=== PATIENT | male | born 1960 | race Caucasian/White ===

== ENCOUNTER 2016-06-04 04:30 | Emergency (ER) | payer OTHER ==
[2016-06-04 04:44] VITALS: BP 151/93
[2016-06-04] MEDS ORDERED: HYDROmorphone 1 MG/ML Syringe IVPUSH ONE (04:52)
[2016-06-04] MEDS ORDERED: Ondansetron 4 MG/2 ML SDV IVPUSH ONE (04:52)
[2016-06-04] MEDS ORDERED: Sodium Chloride 0.9% 10 ML Syringe FLUSH PRN (04:52)
[2016-06-04] MEDS ORDERED: Sodium Chloride 0.9% 1,000 ML IV ONE (04:52)
[2016-06-04 05:53] LABS: CHLORIDE,CL 101 mmol/L (98-107); SODIUM,NA 139 mmol/L (136-145)
[2016-06-04] MEDS ORDERED: Potassium Chloride 20 MEQ Tab.ER PO ONE (06:32)
[2016-06-04] MEDS ORDERED: Take Home: Acetaminophen/HYDROcodone 325-5 MG, 5 Tab Pack PO ONE (06:52)
[2016-06-04] MEDS ORDERED: Ketorolac 30 MG/ML SDV IVPUSH ONE (06:53)
--- NOTE | 2016-06-04 12:07 | ER ---
Date of Service: 06/04/2016 SUBJECTIVE: Dereje presents to the emergency room with complaints of right upper quadrant abdominal pain and right-sided flank pain. The patient states that he has been experiencing this discomfort intermittently for the past day. There does appear to be a postprandial component to this. He states that he did eat some hot dish today and did consume milk as well. He states that he has not been experiencing any fever or chills. The patient states that he thinks that he possibly has a kidney stone, because he did have pain similar to this approximately 5 years ago that resolved on its own. He denies any tea-colored urine or fabio-colored stools. PAST MEDICAL HISTORY: 1. Type 2 diabetes mellitus. 2. Hypertension. 3. Chronic hypokalemia. MEDICATIONS: 1. Zoloft. 2. Metformin. 3. Potassium chloride. 4. Unknown antihypertensive agents. REVIEW OF SYSTEMS: General: No fever or chills. HEENT: No sore throat, rhinorrhea, or congestion. Respiratory: No shortness breath. Cardiac: Denies any substernal chest pain. No jaw, arm, neck, or back pain. Gastrointestinal: Please see history of present illness. Again, complains of right upper quadrant abdominal pain and right flank pain. Denies any melena, hematochezia, hematemesis. Genitourinary: Denies any dysuria. Musculoskeletal: No myalgias or arthralgias. LABORATORY DATA: CBC was obtained, was all noted to be within normal limits. Comprehensive metabolic panel was obtained. Sodium is 139, potassium is 2.9, chloride is 101, bicarbonate is 29, BUN is 16, creatinine is 1.1, creatinine clearance is 79, GFR is greater than 60, glucose is 271, calcium is 9.4, corrected calcium is 9.8, total bilirubin is 0.7, AST is 46, ALT is 66, alkaline phosphatase is 109, total protein is 7.5, albumin is 3.5. Urinalysis specific gravity is 1.030. He did have glucose in his urine. He did have trace ketones. PH was 7.0, negative for leukocytes and nitrites. CT scan of the patient's abdomen and pelvis without contrast was obtained. There was evidence of several large gallstones and sludge in the gallbladder. No evidence of any kidney stone. No evidence any inflammatory changes surrounding the gallbladder. EMERGENCY ROOM COURSE: IV access was established. He was given a liter of normal saline IV. He was given Dilaudid 1 mg IV and Zofran 4 mg IV. This did help with his discomfort significantly. However, he began experiencing increased pain. He was subsequently given 30 mg of Toradol, which did help significantly, again with the discomfort. He remained stable in my care in the emergency room. ASSESSMENT: 1. Cholecystitis. 2. Chronic hypokalemia. 3. Type 2 diabetes mellitus with hyperglycemia. PLAN: The patient was discharged. His potassium was repleted. I did start him on [place] 5/325 with instructions to take 1 every 4 to 6 hours as needed for pain. He has not taken his morning medication. He states that his blood sugar normally runs in this range in the mornings as he does have very poorly controlled blood glucose. I advised him to follow up with his primary care provider in the next 5 to 7 days to address these issues. All questions were answered. LUIS AK: 06/04/2016 07:07:39 MODL: 06/04/2016 11:57:38 /[id number]
--- NOTE | 2016-06-08 13:32 | ER ---
Date of Service: 06/04/2016 ADDENDUM: PHYSICAL EXAMINATION: General: A 56-year-old male patient. No acute distress. Vital Signs: Blood pressure is 151/91, pulse rate is 87, temperature is 36.1, O2 saturations 94%, and respiratory rate 16. Skin: Warm, pink, and dry. HEENT. Head is normocephalic, atraumatic. Mouth, oral mucosa is moist. Lungs: Clear to auscultation. Heart: Regular rate and rhythm. Abdomen: Soft, diffusely tender in the right upper quadrant. There are no masses noted. There is no hepatosplenomegaly noted. Bowel sounds are normoactive. Remainder of his physical examination is within normal limits. MWK: 06/07/2016 19:38:36 MODL: 06/08/2016 00:14:45 /[id number]
== END 2016-06-04 07:20 | disposition home or self-care (01) ==
LOC: VM.ED 04:30
DX: K81.9 Cholecystitis, unspecified (principal); E87.6 Hypokalemia; E11.65 Type 2 diabetes mellitus with hyperglycemia; I10 Essential (primary) hypertension
CPT/HCPCS: 74176; 80053; 81001; 85025; 93005; 96361; 96374; 96375; 99285; A9270; J1170; J1885; J2405; J7030

== ENCOUNTER 2020-04-03 06:59 | Day surgery (SDC) | payer OTHER ==
[2020-04-03] MEDS ORDERED: Lactated Ringers 1,000 ML IV SCH (07:00)
[2020-04-03] MEDS ORDERED: Citric Acid/Sodium Citrate Solution 30 ML Cup PO ONE (07:58)
[2020-04-03] MEDS ORDERED: Propofol 200 MG/20 ML SDV ONE (08:06)
[2020-04-03] MEDS ORDERED: fentaNYL 100 MCG/2 ML SDV ONE (08:07)
[2020-04-03 10:39] VITALS: BP 126/77; PULSE 66
--- NOTE | 2020-04-03 14:31 | OR ---
PREOPERATIVE DIAGNOSES: 1. Esophageal dysphagia in the upper chest. 2. Gastroesophageal reflux disease. POSTOPERATIVE DIAGNOSES: 1. Esophageal dysphagia in the upper chest. 2. Gastroesophageal reflux disease. 3. Mild antritis. 4. Distal esophagitis. 5. No evidence of strictures or masses in the esophagus to account for symptoms. PROCEDURE PERFORMED: Esophagogastroduodenoscopy with biopsies. ANESTHESIA: MAC anesthesia. COMPLICATIONS: None apparent. BLOOD LOSS: Minimal. FINDINGS: 1. The duodenum was unremarkable. 2. There was mild antritis and gastritis. 3. Multiple antral lesser curve and greater curve biopsies were taken for H. pylori. 4. There was a small approximately 2 cm hiatal hernia. 5. There was distal esophagitis. Biopsies were obtained. 6. The remainder of the esophagus was unremarkable without evidence of masses or strictures to account for symptoms. Random biopsies were taken to evaluate for eosinophilic esophagitis as the source of his dysphagia. INDICATIONS FOR PROCEDURE: Mr. Sommers is a 59-year-old male who has had dysphagia in his upper chest for greater than a year. It happened several times a week and is present only with solids. He denies any weight loss. He does take [id number] omeprazole most days, but does not take it every single day. He also describes burning in his throat which occurs on most days. In addition, he has mild intermittent epigastric pain. He reports a history of gastric ulcers many years ago. PROCEDURE IN DETAIL: Informed consent was obtained. The patient was brought to the operating room and placed in left lower decubitus position. MAC anesthesia was induced by Anesthesia colleagues. The endoscope was introduced in the patient's mouth, down the esophagus, and into the stomach. The pylorus was intubated. The duodenum was examined up into the second portion. The colonoscope was withdrawn from the duodenum and then a retroflexed view was obtained. No pathology was identified except for what is mentioned in the above findings section. The stomach was desufflated and the colonoscope was withdrawn examining the esophagus on the way out. The patient was awoken from anesthesia by Anesthesia colleagues without incident. PATHOLOGY: A) Stomach, antrum biopsy Fragments of antral mucosa with features of reactive gastropathy. Fragments of antral-fundic transitional mucosa with patchy mild chronic gastritis. Negative for Helicobacter pylori. 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 Negative for dysplasia. C) Esophagus, random biopsies Squamous mucosa with no diagnostic abnormalities. RECOMMENDATIONS: 1. Prescription for Protonix 40 mg daily given to the patient for 30 days with 1 refill. He should discuss ongoing treatment with his PCP. 2. Avoid things which exacerbate his reflux including NSAIDs, smoking, alcohol, spicy foods, or any other foods that seem to exacerbate his reflux symptoms. 3. Will need repeat EGD in 3 years for surveillance of Ruiz's esophagus. RKM: 04/03/2020 10:11:55 MODL: 04/03/2020 14:08:07 /[id number]
--- NOTE | 2020-04-08 08:39 | LETTER ---
04/07/2020 RE: DEREJE LEWIS : 1960 Dereje [address] [place] [address] Dear Mr. Lewis: I am writing to inform you of the pathology results of your recent upper endoscopy. We took biopsies of your stomach which showed some mild inflammation. We also checked for a bacteria called Helicobacter pylori which can increase your risk of ulcers. You do not have any evidence that this bacteria is present. We also took biopsies of your esophagus. In the lower part of your esophagus, you had findings called intestinal metaplasia. 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 This is a change in the lower esophagus which occurs as a response to acid when the esophagus is exposed to acid via reflux. You do not have cancer or any abnormal cells. However, Ruiz's esophagus does put you at an increased lifetime risk for developing cancer in the esophagus. Because of this, you will need a repeat upper endoscopy in 3 years for surveillance of your Ruiz's esophagus. We will be checking to see if any of the cells in the lower esophagus have started to progress toward cancer. If we find this, they can be easily treated before they develop into cancer. In addition, we did not find any clear explanation for your difficulty swallowing in the upper chest. I did take biopsies higher up in your esophagus, which were all normal and I did not find any masses or narrowing to explain those symptoms. I recommend that you just continue taking your antiacid medications and discuss the ongoing treatment with your Protonix with your PCP. Please let me know if you have any questions about this. Warmest regards,
== END 2020-04-03 12:10 | disposition home or self-care (01) ==
LOC: VM.SDS 06:59
PROVIDERS: ATTEND Student in an Organized Health Care Education/Training Program
DX: K29.50 Unspecified chronic gastritis without bleeding (principal); K21.00 Gastro-esophageal reflux disease with esophagitis, without bleeding; K44.9 Diaphragmatic hernia without obstruction or gangrene; K31.89 Other diseases of stomach and duodenum; I10 Essential (primary) hypertension; E11.9 Type 2 diabetes mellitus without complications; K22.2 Esophageal obstruction; I25.10 Atherosclerotic heart disease of native coronary artery without angina pectoris; E66.9 Obesity, unspecified; Z01.812 Encounter for preprocedural laboratory examination; Z20.822 Contact with and (suspected) exposure to COVID-19; Z87.19 Personal history of other diseases of the digestive system; Z79.899 Other long term (current) drug therapy; Z79.84 Long term (current) use of oral hypoglycemic drugs; Z98.890 Other specified postprocedural states; Z68.37 Body mass index [BMI] 37.0-37.9, adult
CPT/HCPCS: 00731; 82962; A9270-GY; J2704; J3010; J7120; U0002

== ENCOUNTER 2020-08-28 06:42 | Day surgery (SDC) | payer OTHER ==
[~2020-08-28 06:42] MED LIST: Lactated Ringers 1,000 ML IV SCH
[2020-08-28] MEDS ORDERED: Lactated Ringers 1,000 ML IV SCH (07:00)
[2020-08-28] MEDS ORDERED: Propofol 200 MG/20 ML SDV ONE (08:37)
[2020-08-28] MEDS ORDERED: Midazolam 1 MG/ML 2 ML SDV ONE (08:37)
[2020-08-28] MEDS ORDERED: fentaNYL 100 MCG/2 ML SDV ONE (08:37)
[2020-08-28 10:18] VITALS: BP 159/100; PULSE 80
--- NOTE | 2020-08-28 13:16 | OR ---
PREOPERATIVE DIAGNOSIS: Screening colonoscopy. POSTOPERATIVE DIAGNOSIS: Colon polyps. PROCEDURE PERFORMED: Total flexible colonoscopy with polypectomies. ANESTHESIA: MAC anesthesia. COMPLICATIONS: None. BLOOD LOSS: Minimal. FINDINGS: 1. Ascending colon polyp, 2 mm, cold forceps. 2. Transverse colon polyps x2, 2 mm/4 mm, cold snare and cold forceps, 1 not retrieved. 3. Sigmoid colon polyps x3, 3 to 4 mm, cold snare and cold forceps. 4. Rectal polyp, 12 mm, hot snare, located just proximal to the anal canal, polypectomy site visible on the retroflex view START TIME: 840. CECUM TIME: 08. STOP TIME: 900. BOWEL PREP: [place] class 3. INDICATION FOR PROCEDURE: Mr. Sommers is a 60-year-old male whose last colonoscopy was 10 years ago. At that time he reports no polyps. Denies history of bloody or dark black stools. No family history of colorectal cancer. DETAILS OF PROCEDURE: Informed consent was obtained. The patient was brought to the procedure room and placed in left lateral decubitus position. MAC anesthesia was induced by Anesthesia colleagues. Colonoscope was introduced into the rectum and advanced all the way to the cecum. The terminal ileum was intubated and photographed. The colonoscope was then slowly withdrawn and no pathology was identified except for what is mentioned in the above findings section. Retroflexed view was obtained and the colonoscope was removed. The patient tolerated the procedure well, was awoken from MAC anesthesia by Anesthesia colleagues without incident. PATHOLOGY: A) Colon, descending, polyp Tubular adenoma. No high-grade dysplasia or malignancy identified. B) Colon, transverse, polyp Fragments of tubular adenoma(s) No high-grade dysplasia or malignancy identified. C) Colon, sigmoid, polyp Fragments of tubular adenoma(s) No high-grade dysplasia or malignancy identified. D) Colon, rectum, polyp Invasive moderately differentiated adenocarcinoma arising in association with an adenomatous polyp. Invasive adenocarcinoma extends at least into the submucosa. DNA mismatch repair enzyme panel immunohistochemistry: Retained tumor cell nuclear expression (mismatch repair proficient tumor: MMR-P). No angiolymphatic invasion identified. Tumor extends to within <1 mm of the deep cauterized margin. Recommendations: 1. Given the lack of consensus regarding the definition of a positive margin for an endoscopically resected adenocarcinoma I discussed the case with Dr. Velazquez from colorectal surgery in [place]. He recommended referral. I did not tattoo this polyp as I did not expect malignancy to be found based on its gross appearance. 2. The above was discussed over the phone with the patient. RKM: 08/28/2020 09:15:22 MODL: 08/28/2020 11:26:25 /[id number]
== END 2020-08-28 10:35 | disposition home or self-care (01) ==
LOC: VM.SDS 06:42
PROVIDERS: ATTEND Student in an Organized Health Care Education/Training Program
DX: Z12.11 Encounter for screening for malignant neoplasm of colon (principal); C20 Malignant neoplasm of rectum; E11.9 Type 2 diabetes mellitus without complications; F32.9 Major depressive disorder, single episode, unspecified; K21.9 Gastro-esophageal reflux disease without esophagitis; D12.2 Benign neoplasm of ascending colon; D12.3 Benign neoplasm of transverse colon; D12.5 Benign neoplasm of sigmoid colon; E87.6 Hypokalemia; I10 Essential (primary) hypertension
CPT/HCPCS: 00811; 82947; J2250; J2704; J3010; J7120

== ENCOUNTER 2021-03-09 08:47 | Emergency (ER) | payer OTHER ==
[2021-03-09 09:49] LABS: CORONAVIRUS COVID-19 NAA NEGATIVE (NEGATIVE)
[2021-03-09] MEDS ORDERED: Albuterol/Ipratropium 3.0-0.5 MG/3 ML Neb Soln NEB ONE (10:19)
[2021-03-09] MEDS ORDERED: Doxycycline 100 MG Cap PO ONE (10:36)
[2021-03-09 11:08] LABS: ANION GAP 14.7 mmol/L (5-15); CHLORIDE,CL 103 mmol/L (98-107); SODIUM,NA 139 mmol/L (136-145)
[2021-03-09 13:52] VITALS: BP 138/82; PULSE 80
== END 2021-03-09 11:45 | disposition home or self-care (01) ==
LOC: VM.ED 08:47
DX: J18.9 Pneumonia, unspecified organism (principal); I10 Essential (primary) hypertension; E11.9 Type 2 diabetes mellitus without complications; E66.9 Obesity, unspecified; Z68.37 Body mass index [BMI] 37.0-37.9, adult; Z79.84 Long term (current) use of oral hypoglycemic drugs; Z86.73 Personal history of transient ischemic attack (TIA), and cerebral infarction without residual deficits; Z79.899 Other long term (current) drug therapy; Z20.822 Contact with and (suspected) exposure to COVID-19
CPT/HCPCS: 0240U; 36415; 71046; 80053; 83605; 84145; 85025; 86140; 94640; 99285-25; A9270-GY; J7620-GY